=== PATIENT | female | born 1990 | race Caucasian/White ===

== ENCOUNTER 2020-06-10 16:06 | Outpatient (REF) | payer MEDICAID, SELFPAY ==
--- NOTE | 2020-06-10 | US_ITS ---
EXAMINATION: US THYROID CLINICAL INFORMATION: Multinodular goiter. COMPARISON: Ultrasound soft tissue head/neck thyroid dated 08/06/2019 and 05/25/2018. TECHNIQUE: Linear transducer vallejo-scale and color Doppler examination with attention to the region of the thyroid. FINDINGS: SIZE: Measurements of the thyroid lobes and nodules are given in sagittal, anteroposterior and transverse dimensions respectively. Right Thyroid Lobe: 3.7 x 1.3 x 1.3 cm, volume 3.3 mL. Previously 3.9 x 1.4 x 1.3 cm, volume 3.7 mL. Parenchyma: The gland echotexture is homogeneous. Thyroid vascularity is normal. Left Thyroid Lobe: 3.8 x 1.7 x 1.4 cm, volume 4.7 mL. Previously 4.7 x 1.4 x 1.5 cm, volume 5.2 mL. Parenchyma: The gland echotexture is homogeneous. Thyroid vascularity is increased. Isthmus: 0.2 cm in maximum AP dimension. Previously 0.2 cm. RIGHT THYROID LOBE: There are 3 nodules seen. 1. Location: Midpole, mid. Size: 0.4 x 0.3 x 0.4 cm. Not documented previously. Nodule characteristics: Hypoechoic. 2. Location: Midpole anterior. Size: 0.4 x 0.3 x 0.4 cm. Previous: 0.4 x 0.3 x 0.2 cm. Nodule characteristics: Hypoechoic. 3. Location: Mid to lower pole lateral. Size: 0.3 x 0.2 x 0.2 cm. Previous: 0.3 x 0.2 x 0.2 Nodule characteristics: Anechoic. 4. Location: Lower pole, sagittal only. Size: 0.4 x 0.2 cm. Previous: 0.4 x 0.2 cm. Nodule characteristics: Hypoechoic. ISTHMUS: No nodules. LEFT THYROID LOBE: There are 2 nodules seen. 1. Location: Midpole. Size: 2.0 x 1.3 x 1.0 cm. Previous: 1.1 x 1.7 x 1.1 cm. Nodule characteristics: Hypoechoic, vascular. 2. Location: Midpole medial/left. Size: 0.7 x 0.5 x 0.6 cm. Previous: 0.7 x 0.4 x 0.5 cm. Nodule characteristics: Mildly hypoechoic. NODES: No lymphadenopathy is seen in the tissue surrounding the thyroid gland. US/US thyroid IMPRESSION: Previously biopsied hypoechoic nodule in the left midpole has mildly increased in size. Correlate with previous biopsy results. Given the interval increase in size, repeat biopsy should be considered. Alva-term ultrasound follow-up should be considered in 6 months as well. Other nodules are nonspecific and measure less than 1.0 cm.
== END 2020-06-10 16:07 | disposition home or self-care (01) ==
LOC: HO.US 16:06
PROVIDERS: Visit Provider Internal Medicine
DX: E04.2 Nontoxic multinodular goiter (principal)
CPT/HCPCS: 76536

== ENCOUNTER 2020-07-31 10:48 | Outpatient (REF) | payer MEDICAID, SELFPAY ==
--- NOTE | 2020-07-31 11:22 | PM.OP ---
Brief Operative Note Date of Service: 07/31/20 Surgeon: Tesha Hope DO Patient arrived for FNA biopsy of the thyroid. She was noted to have a 2.1 cm L mid pole nodule. This was intensely hypervascular. She also had multiple pathologic appearing lymph nodes in the L cervical chain. I am concerned that this may represent a toxic nodule and by completing an FNA we can induce thyroid storm today. Plan is to check TSH now. I will call her with results. If she is hyperthyroid I will discuss a surgical lobectomy with her, if she is normothyroid I will perform her FNA biopsy next week. Estimated blood loss (mL): 0
[2020-07-31 12:45] LABS: Free T4 (Free Thyroxine) 0.85 ng/dL (0.71-1.85); Thyroid Stimulating Hormone 0.81 uIU/mL (0.32-4.0)
[2020-08-01 09:17] LABS: Triiodothyronine T3 Total 110 ng/dL (76-181)
[2020-08-01 12:26] LABS: Thyroglobulin Antibodies <1 IU/mL (< or = 1); Thyroid Peroxidase Antibodies 1 IU/mL (<9)
[2020-08-05 15:26] LABS: Thyroid Stimulating Immunoglob <89 % baseline (<140)
[2020-08-11 14:12] LABS: Thyrotropin Receptor Antibody <1.00 IU/L (<=2.00)
== END 2020-07-31 10:49 | disposition home or self-care (01) ==
LOC: HO.US 10:48
PROVIDERS: Visit Provider Internal Medicine
DX: E04.2 Nontoxic multinodular goiter (principal)
CPT/HCPCS: 36415; 76536; 83520; 84439; 84443; 84445; 84480; 86376; 86800

== ENCOUNTER 2020-08-14 10:48 | Outpatient (REF) | payer MEDICAID, SELFPAY ==
--- NOTE | 2020-08-14 11:22 | PM.OP ---
Brief Operative Note Date of Service: 08/14/20 Surgeon: Tesha Hope, DO This is doctor Tesha Hope. This is an ultrasound-guided fine-needle aspiration report. Date of Examination: 08/14/2020 Indication: Multinodular Thyroid Porcedure: Procedure was explained to the patient. Alternatives, the risk and benefits were discussed. Written consent was obtained. A time-out was also obtained. After sterile preparation, fine-needle aspiration of a Left mid pole 2.1 cm thyroid nodule was performed using direct ultrasound guidance to confirm accurate needle placement. Four aspirations were made using 27 gauge needles. Samples were submitted for cytology. One pass was dedicated for [employer] sequencing behavioral health consultant testing. The patient tolerated the procedure well. Aftercare instructions were provided. Impression: Uncomplicated fine needle aspiration biopsy of a Left mid pole 2.1 cm thyroid nodule under ultrasound guidance. Estimated blood loss (mL): 0
[2020-08-14] MEDS: Lidocaine HCl 1 % MPF 5 ML VIAL SUBCUT (12:12)
== END 2020-08-14 10:49 | disposition home or self-care (01) ==
LOC: HO.US 10:48
PROVIDERS: Visit Provider Internal Medicine
DX: E04.2 Nontoxic multinodular goiter (principal)
CPT/HCPCS: 10005; 88172; 88173

== ENCOUNTER → 2020-10-02 14:27 | Outpatient (BNVA) | payer MEDICAID, SELFPAY | PROVIDERS: PCP Nurse Practitioner Family; Visit Provider Internal Medicine | DX: E04.2 Nontoxic multinodular goiter (principal) | CPT/HCPCS: 99212 ==

== ENCOUNTER → 2020-12-04 10:59 | Outpatient (BNVA) | payer MEDICAID, SELFPAY | PROVIDERS: Visit Provider Internal Medicine ==

== ENCOUNTER → 2021-03-05 13:36 | Outpatient (BNVA) | payer MEDICAID, SELFPAY | PROVIDERS: Visit Provider Internal Medicine ==

== ENCOUNTER 2021-05-25 08:01 | Outpatient (REF) | payer MEDICAID, SELFPAY ==
[2021-05-25 13:35] LABS: Albumin Level 4.3 g/dL (3.5-5.0); Calcium 9.3 mg/dL (8.4-10.2)
[2021-05-25 13:53] LABS: Free T4 (Free Thyroxine) 0.93 ng/dL (0.71-1.85); Thyroid Stimulating Hormone 2.25 uIU/mL (0.32-4.0); Vitamin D 25-OH Total 26.6 ng/mL (>30)
[2021-05-27 12:11] LABS: Calcium (PTHI) 9.3 mg/dL (8.6-10.2); PTHI 15 pg/mL (14-64)
== END 2021-05-25 08:02 | disposition home or self-care (01) ==
LOC: HO.LAB 08:01
PROVIDERS: PCP General Practice; Visit Provider Internal Medicine
DX: E04.2 Nontoxic multinodular goiter (principal); E55.9 Vitamin D deficiency, unspecified
CPT/HCPCS: 36415; 82040; 82306; 82310; 83970; 84439; 84443

== ENCOUNTER 2021-08-25 08:54 | Outpatient (REF) | payer MEDICAID, SELFPAY ==
--- NOTE | ~2021-08-25 | US_ITS ---
EXAMINATION: US THYROID CLINICAL INFORMATION: Nontoxic single thyroid nodule. Left thyroidectomy. COMPARISON: Thyroid ultrasound 07/31/2020 and 06/10/2020. Ultrasound-guided thyroid biopsy 07/20/2018. TECHNIQUE: Linear transducer grayscale and color Doppler examination with attention to the region of the thyroid. FINDINGS: SIZE: Measurements of the right lobe and nodules are given in sagittal, anteroposterior and transverse dimensions respectively. Right Thyroid Lobe: 3.8 x 1.4 x 1.3 cm, volume 3.6 mL. Previously 3.7 x 1.3 x 1.3 cm, volume 3.3 mL. Parenchyma: The gland echotexture is heterogeneous. Thyroid vascularity is increased. Left Thyroid Lobe: Surgically absent. Isthmus: 0.3 cm in maximum AP dimension. Previously 0.2 cm. Estimated total number of nodules greater than or equal to 1 cm: 0. 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 Location: Right upper pole. Size: 0.5 x 0.3 x 0.4 cm, volume 0.03 mL. Previously: 0.4 x 0.3 x 0.4 cm, volume 0.03 mL. Nodule characteristics: Composition: Spongiform (0). ACR TI-RADS total points: 0 ACR TI-RADS category: 1 Significant change in size (>/= 20% in 2 dimensions and minimal increase of 2 mm or 50% or greater increase in volume): Change in features: Change in ACR TI-RADS risk category: 2. Location: Right midpole. Size: 0.6 x 0.3 x 0.4 cm, volume 0.04 mL. Previously: 0.4 x 0.3 x 0.4 cm, volume 0.03 mL. Nodule characteristics: Composition: Spongiform (0). ACR TI-RADS total points: 0 ACR TI-RADS category: 1 Significant change in size (>/= 20% in 2 dimensions and minimal increase of 2 mm or 50% or greater increase in volume): Change in features: Change in ACR TI-RADS risk category: 3. Location: Right lower pole. Size: 0.5 x 0.5 x 0.5 cm, volume 0.06 mL. Previously: Not documented, new. Nodule characteristics: Composition: Solid (2). Echogenicity: Isoechoic (1). Shape: Not taller than wide (0). Margins: Smooth (0). Echogenic Foci: None (0). ACR TI-RADS total points: 3 ACR TI-RADS category: 3 4. Location: Right lower pole. Size: 0.4 x 0.3 x 0.3 cm, volume 0.02 mL. Previously: 0.4 x 0.2 x 0.3 cm, volume 0.02 mL. Nodule characteristics: Composition: Spongiform (0). ACR TI-RADS total points: 0 ACR TI-RADS category: 1 Significant change in size (>/= 20% in 2 dimensions and minimal increase of 2 mm or 50% or greater increase in volume): Change in features: Change in ACR TI-RADS risk category: LEFT THYROIDECTOMY BED: No residual thyroid tissue or nodule. NODES: There is a left level 3 lymph node that measures 2.3 x 0.7 x 0.5 cm. This demonstrates cortical thickening and normal hilar flow. There is a left level 3 lymph node that measures 1.6 x 0.8 x 0.7 cm. This demonstrates normal ultrasound morphology and flow. There is a right level 2 lymph node. This measures 2.7 x 0.7 x 1.3 cm. This demonstrates cortical thickening and slit-like hilum. This demonstrates normal hilar flow. There is a right level 5A lymph node that measures 1.1 x 0.5 x 1.1 cm. This demonstrates normal ultrasound morphology and flow. US/US thyroid IMPRESSION: Post left thyroidectomy. Heterogeneous hypervascular right lobe. Small subcentimeter right thyroid nodules. Bilateral cervical lymphadenopathy. Largest lymph nodes are a right level 2 lymph node and a left level 3 lymph node. ACR TI-RADS RECOMMENDATION REFERENCE: Ultrasound-guided fine-needle aspiration, followup ultrasound, no further follow up. * TR1 (0 point) and TR 2 (2 points): No FNA or follow up * TR3 (3 points): FNA if more than or equal to 2.5 cm in maximum dimension, followup ultrasound in 1, 3 and 5 years if 1.5 to 2.4 cm in maximum dimension. * TR4 (4-6 points): FNA if more than or equal to 1.5 cm in maximum dimension, followup ultrasound in 1, 2, 3 and 5 years if 1 to 1.4 cm in maximum dimension. * TR5 (more than or equal to 7 points): FNA if more than or equal to 1 cm in maximum dimension, followup ultrasound every year for 5 years if 0.5 to 0.9 cm in maximum dimension. * TR3, TR4 or TR5 nodules that are below the size threshold for follow up receive no follow up.
== END 2021-08-25 08:55 | disposition home or self-care (01) ==
LOC: HO.US 08:54
PROVIDERS: PCP General Practice; Visit Provider Internal Medicine
DX: E04.1 Nontoxic single thyroid nodule (principal)
CPT/HCPCS: 76536

== ENCOUNTER 2021-09-09 12:55 | Outpatient (REF) | payer MEDICAID, SELFPAY ==
[2021-09-09 15:15] LABS: Free T4 (Free Thyroxine) 0.81 ng/dL (0.71-1.85); Thyroid Stimulating Hormone 1.59 uIU/mL (0.32-4.0); Vitamin D 25-OH Total 21.2 ng/mL (>30)
== END 2021-09-09 12:56 | disposition home or self-care (01) ==
LOC: HO.LAB 12:55
PROVIDERS: PCP General Practice; Visit Provider Internal Medicine
DX: E04.2 Nontoxic multinodular goiter (principal); E55.9 Vitamin D deficiency, unspecified; R59.0 Localized enlarged lymph nodes
CPT/HCPCS: 36415; 82306; 84439; 84443; 99212

== ENCOUNTER → 2021-12-28 11:38 | Outpatient (BNVA) | payer MEDICAID, SELFPAY | PROVIDERS: PCP General Practice; Visit Provider Internal Medicine | DX: Z13.89 Encounter for screening for other disorder (principal) ==

== ENCOUNTER 2021-12-31 11:48 | Outpatient (REF) | payer MEDICAID, SELFPAY ==
--- NOTE | ~2021-12-31 | US_ITS ---
EXAMINATION: US SOFT TISSUE NECK CLINICAL INFORMATION: Localized enlarged lymph nodes COMPARISON: Previous thyroid ultrasound August 2021 TECHNIQUE: Ultrasound of the neck soft tissues is performed with high- frequency vallejo-scale imaging and color Doppler. FINDINGS: THYROID BED: Prior left thyroidectomy. There are 2 small nodules in the right lobe measuring 3 x 3 x 2 mm in the lower pole and 5 x 6 x 3 mm in the upper pole. The right lobe of the thyroid gland and isthmus are otherwise normal-appearing. RIGHT NECK SOFT TISSUES: There are 4 right cervical lymph nodes. These demonstrate normal ultrasound morphology and flow and are normal in size. The largest nodes are as follows: Level 2: 1.3 x 0.6 x 0.8 cm. Normal harmony architecture. Level 4: 1.5 x 0.7 x 0.8 cm. Normal harmony architecture. LEFT NECK SOFT TISSUES: There is a single left cervical lymph node. This is slightly enlarged. This demonstrates normal ultrasound morphology and flow. The largest nodes are as follows: Level 1B: 1.1 x 0.9 x 1.3 cm. Normal harmony architecture. US/US soft tiss head and/or neck IMPRESSION: Post left thyroidectomy. Solitary slightly enlarged left cervical lymph node. Multiple normal-appearing right cervical lymph nodes.
[2021-12-31 14:12] LABS: Free T4 (Free Thyroxine) 0.86 ng/dL (0.71-1.85); Thyroid Stimulating Hormone 1.28 uIU/mL (0.32-4.0); Vitamin D 25-OH Total 40.4 ng/mL (>30)
== END 2021-12-31 11:49 | disposition home or self-care (01) ==
LOC: HO.US 11:48
PROVIDERS: PCP General Practice; Visit Provider Internal Medicine
DX: E04.2 Nontoxic multinodular goiter (principal); R59.0 Localized enlarged lymph nodes; E55.9 Vitamin D deficiency, unspecified
CPT/HCPCS: 36415; 76536; 82306; 84439; 84443

== ENCOUNTER 2023-04-01 17:39 | Outpatient (REF) | payer MEDICAID, SELFPAY ==
[2023-04-02 09:22] LABS: CT PCR NOT DETECTED (Not Detect.); NG PCR NOT DETECTED (Not Detect.)
[2023-04-02 12:33] LABS: BV Int Neg Control Negative (Negative); BV Int Pos Control Positive (Positive)
== END 2023-04-01 17:40 | disposition home or self-care (01) ==
LOC: HO.LNP 17:39
PROVIDERS: Visit Provider Family Medicine
DX: R31.9 Hematuria, unspecified (principal)
CPT/HCPCS: 0353U; 87086; 87480; 87510; 87660

== ENCOUNTER 2023-07-22 11:01 | Outpatient (REF) | payer MEDICAID, SELFPAY ==
[2023-07-22 11:36] LABS: Hematocrit 39.2 % (37.0-47.0); Hemoglobin 12.9 g/dl (12.0-16.0); Mean Corpuscular HGB Conc 32.9 g/dl (31.0-35.0); Mean Corpuscular Hemoglobin 28.4 pg (27.0-33.0); Mean Corpuscular Volume 86.2 fL (80.0-98.0); Mean Platelet Volume 9.7 fL (9.4-12.3); Platelet Count 275 X10*3/uL (160-400); Red Blood Count 4.55 X10*6/uL (4.20-5.50); Red Cell Distribution Width 14.4 % (11.0-16.0); White Blood Count 4.8 X10*3/uL (4.8-10.8)
[2023-07-22 12:11] LABS: Estimated Average Glucose 103 mg/dL; Hemoglobin A1c % 5.2 % (<6.0)
[2023-07-22 12:26] LABS: Alanine Aminotransferase 12 U/L (0-31); Albumin Level 4.3 g/dL (3.5-5.0); Alkaline Phosphatase 42 U/L (39-117); Amylase 66 U/L (28-100); Anion Gap 11 (12-20); Aspartate Amino Transferase 15 U/L (5-31); Bilirubin Direct 0.1 mg/dL (0.0-0.5); Bilirubin Total 0.3 mg/dL (0.0-1.0); Blood Urea Nitrogen 10 mg/dL (9-16); Calcium 9.2 mg/dL (8.4-10.2); Carbon Dioxide 24 mmol/L (22-29); Chloride 105 mmol/L (96-108); Cholesterol 193 mg/dL (<200); Estimated Glomerular Filt Rate > 60; Glucose Random 88 mg/dL (60-115); HDL Cholesterol 65 mg/dL (>40); LDL Cholesterol Calculated 113 mg/dL (<100); Lipase 19 U/L (8-78); Potassium 4.3 mmol/L (3.3-5.1); Sodium 136 mmol/L (135-145); Total Protein 7.3 g/dL (6.5-8.0); Triglycerides 78 mg/dL (<150)
[2023-07-22 12:27] LABS: HBS Num1 78.55 mIU/mL (0-7.99); HBsAGNum1 0.39 S/CO (0.00-0.99); HIV AB/AG Nonreactive (Nonreactive); HIV Num 1 0.07 S/CO (0.00-0.99); Hepatitis B Surface Antigen Negative (Negative); ~HepC Num1 0.11 S/CO (0.00-0.79); ~Hepatitis B Surface Antibody REACTIVE (Nonreactive); ~Hepatitis C Antibody Nonreactive (Nonreactive)
[2023-07-22 12:35] LABS: Free T4 (Free Thyroxine) 0.92 ng/dL (0.71-1.85); Thyroid Stimulating Hormone 2.64 uIU/mL (0.32-4.0); Vitamin D 25-OH Total 27.5 ng/mL (>30)
[2023-07-22 14:55] LABS: CT PCR NOT DETECTED (Not Detect.); NG PCR NOT DETECTED (Not Detect.)
[2023-07-26 14:14] LABS: RPR Rapid Plasma Reagin NON-REACTIVE (NON-REACTIVE)
== END 2023-07-22 11:02 | disposition home or self-care (01) ==
LOC: HO.HHCL 11:01
PROVIDERS: Visit Provider Family Medicine
DX: R14.0 Abdominal distension (gaseous) (principal); Z11.3 Encounter for screening for infections with a predominantly sexual mode of transmission
CPT/HCPCS: 0353U; 36415; 80048; 80061; 80076; 82150; 82306; 83036; 83690; 84439; 84443; 85027; 86592; 86706; 86803; 87340; 87389

== ENCOUNTER 2023-10-05 16:22 | Outpatient (REF) | payer MEDICAID, SELFPAY ==
[2023-10-05 18:21] LABS: Anion Gap 12 (12-20); Blood Urea Nitrogen 12 mg/dL (9-16); Calcium 9.7 mg/dL (8.4-10.2); Carbon Dioxide 27 mmol/L (22-29); Chloride 104 mmol/L (96-108); Estimated Glomerular Filt Rate > 60; Glucose Random 112 mg/dL (60-115); Sodium 139 mmol/L (135-145)
[2023-10-05 18:30] LABS: TSH reflex Free T4 0.82 uIU/mL (0.32-4.0)
[2023-10-05 18:42] LABS: Parathyroid Hormone Intact 18.1 pg/mL (8.7-77.1)
[2023-10-06 04:40] LABS: HIV AB/AG Nonreactive (Nonreactive); HIV Num 1 0.05 S/CO (0.00-0.99); ~HepC Num1 0.13 S/CO (0.00-0.79); ~Hepatitis C Antibody Nonreactive (Nonreactive)
[2023-10-06 11:51] LABS: CT PCR NOT DETECTED (Not Detect.); NG PCR NOT DETECTED (Not Detect.)
== END 2023-10-05 16:23 | disposition home or self-care (01) ==
LOC: HO.HHCL 16:22
PROVIDERS: Visit Provider General Practice
DX: E89.0 Postprocedural hypothyroidism (principal); Z11.3 Encounter for screening for infections with a predominantly sexual mode of transmission
CPT/HCPCS: 0353U; 36415; 80048; 83970; 84443; 86592; 86803; 87389

== ENCOUNTER 2023-10-07 11:08 | Outpatient (REF) | payer MEDICAID, SELFPAY ==
[2023-10-10 09:20] LABS: RPR Rapid Plasma Reagin NON-REACTIVE (NON-REACTIVE)
== END 2023-10-07 11:09 | disposition home or self-care (01) ==
LOC: HO.HHCL 11:08
PROVIDERS: Visit Provider General Practice
DX: Z11.3 Encounter for screening for infections with a predominantly sexual mode of transmission (principal)
CPT/HCPCS: 36415; 86592

== ENCOUNTER 2024-10-30 11:09 | Outpatient (REF) | payer MEDICAID, SELFPAY ==
--- OUTSIDE RECORDS SUMMARY | 2024-10-30 13:34 | XMS_ITS | Clinical Summary ---
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 Name Role Phone EdwinAbad BRANDON Primary Care Provider [phone] Family History Relation Name Status Comments Father Alive Mother Alive Social History Tobacco Use Types Packs/Day Years Used Date Smoking Tobacco: Never Smokeless Tobacco: Never Alcohol Use Standard Drinks/Week Comments No 0 (1 standard drink = 0.6 oz pur e alcohol) Comments Unknown Sex and Gender Information Value Date Recorded Sex Assigned at Not on file Legal Sex Female 11:14 AM EST Gender Identity Not on file Sexual Orientation Not on file Obstetrics History Plan of Treatment Health Maintenance Due Date Last Done Comments DTaP,Tdap,and Td Vaccines (1 - Tdap) 2010 Hepatitis B Vaccines (1 of 3 - 19+ 3-dose series) 2010 Cervical Cancer Screening: P ap Smear 02/15/2012 COVID-19 Vaccine (2023-2 5 season) 2024 Influenza Vaccine (Season Ended) 2025 HIB Vaccines Aged Out No longer eligi ble based on patient's age to complete this topic HPV Vaccines Aged Out No longer eligi ble based on patient's age to complete this topic Hepatitis A Vaccines Aged Out No long er eligible based on patient's age to complete this topic IPV Vaccines Aged Out No longer eligi ble based on patient's age to complete this topic MMR Vaccines Aged Out No longer eligi ble based on patient's age to complete this topic Meningococcal ACWY Vaccine Aged Out N o longer eligible based on patient's age to complete this topic Meningococcal B Vaccine Aged Out No l onger eligible based on patient's age to complete this topic Pneumococcal Vaccine: Pediat rics (0 to 5 Years) and At-Risk Patients (6 to 64 Years) Aged Out No longer eligible b ased on patient's age to complete this topic RSV Immunization Patients Un erika 20 months Aged Out No longer eligible b ased on patient's age to complete this topic Varicella Vaccines Aged Out No longer eligible based on patient's age to complete this topic Care Teams Gasoline Dragline Operator Relationship Specialty Start Date End Date Abad Pineda NP [address] [place], [place] PCP - General Internal Medicine 10/18/16
[2024-10-30 14:30] LABS: Alanine Aminotransferase 17 U/L (0-31); Albumin Level 4.1 g/dL (3.5-5.0); Alkaline Phosphatase 44 U/L (39-117); Anion Gap 8 (12-20); Aspartate Amino Transferase 30 U/L (5-31); Bilirubin Total 0.2 mg/dL (0.0-1.0); Blood Urea Nitrogen 16 mg/dL (9-16); Calcium 9.1 mg/dL (8.4-10.2); Carbon Dioxide 28 mmol/L (22-29); Chloride 108 mmol/L (96-108); Estimated Glomerular Filt Rate > 60; Glucose Random 82 mg/dL (60-115); Lipase 24 U/L (8-78); Potassium 3.8 mmol/L (3.3-5.1); Sodium 140 mmol/L (135-145); Total Protein 6.9 g/dL (6.5-8.0)
[2024-10-31 04:44] LABS: HBc Num1 0.16 S/CO (0.00-0.79); HBsAGNum1 0.28 S/CO (0.00-0.99); Hepatitis A Antibody IgM 0.16 Index (0-0.79); Hepatitis B Core Antibody Nonreactive (Nonreactive); Hepatitis B Surface Antigen Negative (Negative); ~HepC Num1 0.15 S/CO (0.00-0.79); ~Hepatitis A Antibody IgM Nonreactive (Nonreactive); ~Hepatitis B Surface Antibody REACTIVE (Nonreactive); ~Hepatitis C Antibody Nonreactive (Nonreactive)
== END 2024-10-30 11:10 | disposition home or self-care (01) ==
LOC: HO.HHCL 11:09
PROVIDERS: Visit Provider General Practice
DX: R10.84 Generalized abdominal pain (principal)
CPT/HCPCS: 36415; 80053; 83690; 86704; 86706; 86709; 86803; 87340